=== PATIENT | female | born 1935 | race Caucasian/White ===

== ENCOUNTER 2022-11-09 07:54 | Emergency (ER) | payer MEDICARE, OTHER ==
[~2022-11-09] VITALS: Ht 157.4 cm; Wt 77.6 kg
[2022-11-09] MEDS ORDERED: LEVOTHYROXINE75 MCG PO (08:24)
[2022-11-09] MEDS ORDERED: LISINOPRIL20 MG PO (08:26)
[2022-11-09] MEDS ORDERED: NORVASC10 MG PO (08:26)
[2022-11-09] MEDS ORDERED: COREG6.25 MG PO (08:27)
[2022-11-09] MEDS ORDERED: ASPIRIN ADULT L81 M1 PO (08:28)
[2022-11-09] MEDS ORDERED: HYDR25T PO (08:28)
[2022-11-09] MEDS ORDERED: FOLTANX RF CAP1 EACH PO (08:30)
[2022-11-09 08:34] LABS: HEMATOCRIT 33.4 % (37.0-47.0); MEAN CORPUSCULAR HGB 28.9 pg (27.0-31.0); MEAN CORPUSCULAR HGB CONC 33.2 g/dl (33.0-37.0); MEAN PLATELET VOLUME 9.4 fl (9.6-12.3); PLATELET COUNT AUTOMATED 306 10*3/uL (130-400); RED BLOOD COUNT 3.84 10*6/uL (4.10-5.10); RED CELL DISTRI WIDTH 13.1 % (0-14.5)
[2022-11-09 08:41] LABS: MANUAL DIFF REFLEX YES
[2022-11-09 08:45] LABS: ACT PARTIAL THROMBO TIME 28.8 SECONDS (20.0-32.1); INTERNATIONAL NORM RATIO 0.9 (2.0-3.5)
[2022-11-09 08:58] LABS: BILIRUBIN Negative (Negative); BLOOD Negative (Negative); CLARITY Clear (Clear); COLOR Yellow (Yellow); GLUCOSE Negative (Negative); KETONE Negative (Negative); LEUKO ESTERASE Negative (Negative); NITRITE Negative (Negative); SPECIFIC GRAVITY <= 1.005 (1.001-1.030); UROBILINOGEN 0.2 E.U./dl (0.0-1.0)
[2022-11-09 09:05] LABS: ATYPICAL LYMPHS 2 % (0-0); BASOPHILS 1 % (0-1); OVALOCYTES FEW; PLATELET SUFFICIENCY NORMAL (NORMAL); POLYCHROMASIA SLIGHT; TOTAL CELLS COUNTED 100 #CELLS; VACUOLATION OF NEUTROPHILS SLIGHT
[2022-11-09 09:09] LABS: POTASSIUM 3.9 mmol/L (3.4-5.1)
[2022-11-09] MEDS ORDERED: ONDANSETRON4 MG SL (14:42)
[2022-11-09] MEDS ORDERED: MECLIZINE HCL25 M2 PO (14:42)
== END 2022-11-09 14:52 | disposition home or self-care (01) ==
LOC: ED 07:54
PROVIDERS: Emergency Medicine; Internal Medicine
DX: R42 Dizziness and giddiness (principal); R11.2 Nausea with vomiting, unspecified; I10 Essential (primary) hypertension; D64.9 Anemia, unspecified; E11.9 Type 2 diabetes mellitus without complications; M19.90 Unspecified osteoarthritis, unspecified site; Z96.653 Presence of artificial knee joint, bilateral; Z88.5 Allergy status to narcotic agent; Z88.8 Allergy status to other drugs, medicaments and biological substances

== ENCOUNTER 2024-02-12 23:53 | Emergency (ER) | payer MEDICARE, OTHER ==
[~2024-02-12 23:53] MED LIST: ASPIRIN ADULT L81 M1 PO; COREG6.25 MG PO; FOLTANX RF CAP1 EACH PO; HYDR25T PO; LEVOTHYROXINE75 MCG PO; LISINOPRIL20 MG PO; MECLIZINE HCL25 M2 PO; NORVASC10 MG PO; ONDANSETRON4 MG SL
[2024-02-13 00:27] LABS: BILIRUBIN Negative (Negative); BLOOD Negative (Negative); CLARITY Clear (Clear); COLOR Yellow (Yellow); GLUCOSE Negative (Negative); KETONE Negative (Negative); LEUKO ESTERASE Negative (Negative); NITRITE Negative (Negative); PH 5.5 (4.5-8.0); SPECIFIC GRAVITY <= 1.005 (1.001-1.030); UROBILINOGEN 0.2 E.U./dl (0.0-1.0)
[2024-02-13 00:30] LABS: BASO # 0.1 10*3/uL (0.0-0.1); BASO % 0.8 % (0.0-1.0); EOS # 0.2 10*3/uL (0.0-0.4); EOS % 2.9 % (1.0-4.0); HEMATOCRIT 32.5 % (37.0-47.0); LYMPH # 1.9 10*3/uL (1.3-4.4); LYMPH % 23.6 % (27.0-41.0); MEAN CELL VOLUME 93.4 fl (81.0-99.0); MEAN CORPUSCULAR HGB 29.3 pg (27.0-31.0); MEAN CORPUSCULAR HGB CONC 31.4 g/dl (33.0-37.0); MEAN PLATELET VOLUME 9.5 fl (9.6-12.3); MONO # 0.5 10*3/uL (0.1-1.0); MONO % 5.7 % (3.0-9.0); NEUT # 5.3 10*3/uL (2.3-7.9); NEUT % 66.6 % (47.0-73.0); PLATELET COUNT AUTOMATED 292 10*3/uL (130-400); RED BLOOD COUNT 3.48 10*6/uL (4.10-5.10); RED CELL DISTRI WIDTH 13.3 % (0-14.5); WHITE BLOOD COUNT 7.9 10*3/uL (4.8-10.8)
[2024-02-13 00:35] LABS: BACTERIA TRACE; FINE GRANULAR CAST 0-2; MUCOUS 1+; RBC 0-2 rbc/hpf (0-2)
[2024-02-13 00:54] LABS: POTASSIUM 5.6 mmol/L (3.4-5.1)
[2024-02-13] MEDS ORDERED: DEXTROSE 10 % IN WATER 250 ML DEHP.FR.BG IV ONE (01:00)
[2024-02-13] MEDS ORDERED: SODIUM CHLORIDE 0.9% 500 ML IV ONE (01:00)
== END 2024-02-13 06:10 | disposition home or self-care (01) ==
LOC: ED 23:53
PROVIDERS: Internal Medicine
DX: E11.649 Type 2 diabetes mellitus with hypoglycemia without coma (principal); D64.9 Anemia, unspecified; E87.8 Other disorders of electrolyte and fluid balance, not elsewhere classified; E11.22 Type 2 diabetes mellitus with diabetic chronic kidney disease; I12.9 Hypertensive chronic kidney disease with stage 1 through stage 4 chronic kidney disease, or unspecified chronic kidney disease; N18.9 Chronic kidney disease, unspecified; N17.9 Acute kidney failure, unspecified; M19.90 Unspecified osteoarthritis, unspecified site; Z88.6 Allergy status to analgesic agent; Z88.5 Allergy status to narcotic agent; Z90.49 Acquired absence of other specified parts of digestive tract

== ENCOUNTER 2024-10-01 19:43 | Emergency (ER) | payer MEDICARE, OTHER ==
[~2024-10-01 19:43] MED LIST changes: +AMLODIPINE BESYL5 MG PO; +CALCIUM 500+D1 EAC2 PO; +FEROSUL325 MG PO; +FOLTANX TABLET1 EACH PO; +HYDRALAZINE HYD50 MG PO; +LASIX40 MG PO; +NEURONTIN300 MG PO; +PROBIOTIC250 MG PO; +REPAGLINIDE0.5 M1 PO; +ROSUVASTATIN CA10 MG PO; +VITAMIN C500 M4 PO; +Zestril,Prinivi40 MG PO
[2024-10-01 20:40] LABS: BASO % 0.8 % (0.0-1.0); EOS # 0.1 10*3/uL (0.0-0.4); EOS % 2.1 % (1.0-4.0); HEMATOCRIT 32.8 % (37.0-47.0); MEAN CELL VOLUME 88.4 fl (81.0-99.0); MEAN CORPUSCULAR HGB 27.8 pg (27.0-31.0); MEAN CORPUSCULAR HGB CONC 31.4 g/dl (33.0-37.0); MEAN PLATELET VOLUME 9.2 fl (9.6-12.3); MONO # 0.4 10*3/uL (0.1-1.0); MONO % 7.2 % (3.0-9.0); NEUT # 3.2 10*3/uL (2.3-7.9); NEUT % 61.8 % (47.0-73.0); PLATELET COUNT AUTOMATED 257 10*3/uL (130-400); RED BLOOD COUNT 3.71 10*6/uL (4.10-5.10); RED CELL DISTRI WIDTH 14.8 % (0-14.5); WHITE BLOOD COUNT 5.1 10*3/uL (4.8-10.8)
[2024-10-01 21:01] LABS: POTASSIUM 5.1 mmol/L (3.4-5.1)
[2024-10-01] MEDS ORDERED: LORazepam 1 MG TAB PO ONE (22:15)
== END 2024-10-02 00:35 | disposition home or self-care (01) ==
LOC: ED 19:43
PROVIDERS: Internal Medicine
DX: F41.9 Anxiety disorder, unspecified (principal); D63.1 Anemia in chronic kidney disease; E11.22 Type 2 diabetes mellitus with diabetic chronic kidney disease; I12.9 Hypertensive chronic kidney disease with stage 1 through stage 4 chronic kidney disease, or unspecified chronic kidney disease; N18.9 Chronic kidney disease, unspecified; N17.9 Acute kidney failure, unspecified; M19.90 Unspecified osteoarthritis, unspecified site; R42 Dizziness and giddiness; Z88.5 Allergy status to narcotic agent; Z88.1 Allergy status to other antibiotic agents; Z90.49 Acquired absence of other specified parts of digestive tract; Z98.890 Other specified postprocedural states; Z95.1 Presence of aortocoronary bypass graft

== ENCOUNTER 2024-12-14 20:10 | Emergency (ER) | payer MEDICARE, OTHER ==
[~2024-12-14] VITALS: Wt 70.3 kg
[2024-12-14 20:53] LABS: BASO % 0.8 % (0.0-1.0); EOS # 0.2 10*3/uL (0.0-0.4); EOS % 3.4 % (1.0-4.0); HEMATOCRIT 29.3 % (37.0-47.0); MEAN CELL VOLUME 92.7 fl (81.0-99.0); MEAN CORPUSCULAR HGB 28.2 pg (27.0-31.0); MEAN CORPUSCULAR HGB CONC 30.4 g/dl (33.0-37.0); MEAN PLATELET VOLUME 9.4 fl (9.6-12.3); MONO # 0.4 10*3/uL (0.1-1.0); MONO % 8.8 % (3.0-9.0); NEUT # 2.7 10*3/uL (2.3-7.9); NEUT % 54.3 % (47.0-73.0); PLATELET COUNT AUTOMATED 189 10*3/uL (130-400); RED BLOOD COUNT 3.16 10*6/uL (4.10-5.10); RED CELL DISTRI WIDTH 14.2 % (0-14.5)
[2024-12-14] MEDS ORDERED: LASIX40 MG PO (21:02)
[2024-12-14] MEDS ORDERED: FLONASE ALLERG9.9 ML NAS (21:03)
[2024-12-14] MEDS ORDERED: REPAGLINIDE0.5 M1 PO (21:06)
[2024-12-14 21:12] LABS: POTASSIUM 5.5 mmol/L (3.4-5.1)
[2024-12-14] MEDS ORDERED: Albuterol Sulfate 2.5 MG/3 ML VIAL NEB ONE (21:20)
[2024-12-14] MEDS ORDERED: DEXTROSE 50% 25 GM/50 ML SYR IV ONE (21:20)
[2024-12-14] MEDS ORDERED: INSULIN REGULAR, HUMAN 1 UNIT/0.01 ML IV ONE (21:20)
[2024-12-14 23:33] LABS: POTASSIUM 4.9 mmol/L (3.4-5.1)
== END 2024-12-15 00:26 | disposition home or self-care (01) ==
LOC: ED 20:10
PROVIDERS: Internal Medicine
DX: E87.5 Hyperkalemia (principal); E11.649 Type 2 diabetes mellitus with hypoglycemia without coma; Z88.1 Allergy status to other antibiotic agents; Z88.6 Allergy status to analgesic agent; Z79.899 Other long term (current) drug therapy; Z79.82 Long term (current) use of aspirin; Z90.49 Acquired absence of other specified parts of digestive tract; Z96.653 Presence of artificial knee joint, bilateral; Z95.5 Presence of coronary angioplasty implant and graft; Z86.73 Personal history of transient ischemic attack (TIA), and cerebral infarction without residual deficits

== ENCOUNTER → 2025-01-08 | Outpatient (CLI) | payer MEDICARE, OTHER ==
[~2025-01-08] MED LIST changes: +FLONASE ALLERG9.9 ML NAS
== END | disposition home or self-care (01) ==
LOC: D 14:06
PROVIDERS: ATTEND Physician Assistant
DX: E11.22 Type 2 diabetes mellitus with diabetic chronic kidney disease (principal); N18.32 Chronic kidney disease, stage 3b; I50.9 Heart failure, unspecified

== ENCOUNTER 2025-02-10 22:10 | Observation (INO) | payer MEDICARE, OTHER ==
[~2025-02-10] VITALS: Ht 157.4 cm; Wt 70.3 kg
[2025-02-10 22:23] VITALS: BP 203/56
[2025-02-10] MEDS ORDERED: LORazepam 0.5 MG TAB PO ONE (22:40)
[2025-02-10 23:15] LABS: BASO % 0.7 % (0.0-1.0); EOS # 0.1 10*3/uL (0.0-0.4); HEMATOCRIT 32.5 % (37.0-47.0); MEAN CELL VOLUME 91.3 fl (81.0-99.0); MEAN CORPUSCULAR HGB 28.4 pg (27.0-31.0); MEAN CORPUSCULAR HGB CONC 31.1 g/dl (33.0-37.0); MONO # 0.4 10*3/uL (0.1-1.0); MONO % 7.1 % (3.0-9.0); NEUT % 67.1 % (47.0-73.0); PLATELET COUNT AUTOMATED 220 10*3/uL (130-400); RED BLOOD COUNT 3.56 10*6/uL (4.10-5.10); RED CELL DISTRI WIDTH 13.3 % (0-14.5)
[2025-02-10 23:36] LABS: POTASSIUM 4.1 mmol/L (3.4-5.1)
[2025-02-10 23:44] VITALS: BP 167/41
[2025-02-10 23:45] VITALS: BP 167/41
[2025-02-11 00:52] VITALS: BP 146/52
[2025-02-11 03:14] VITALS: BP 173/94
[2025-02-11 06:03] VITALS: BP 128/37
[2025-02-11 07:22] VITALS: BP 127/44
[2025-02-11] MEDS ORDERED: NITROGLYCERIN 1 IN PACKET T ONE (09:15)
[2025-02-11] MEDS ORDERED: ASPIRIN, CHEWABLE 81 MG TAB PO ONE (09:15)
[2025-02-11 10:11] VITALS: BP 181/57
[2025-02-11] MEDS ORDERED: BISACODYL 10 MG SUPP R PRN (12:30)
[2025-02-11] MEDS ORDERED: Ondansetron Hydrochloride 4 MG/2 ML VIAL IV PRN (12:30)
[2025-02-11] MEDS ORDERED: ACETAMINOPHEN 325 MG TAB PO PRN (12:30)
[2025-02-11] MEDS ORDERED: ACETAMINOPHEN 650 MG SUPP R PRN (12:30)
[2025-02-11] MEDS ORDERED: BISACODYL 5 MG TAB PO PRN (12:30)
[2025-02-11] MEDS ORDERED: Magnesium Hydroxide 30 ML UDC PO PRN (12:30)
[2025-02-11] MEDS ORDERED: HEPARIN SODIUM 250 ML IV SCH (12:45)
[2025-02-11] MEDS ORDERED: SODIUM CHLORIDE 0.9% 1,000 ML IV ONE (13:00)
[2025-02-11 13:24] VITALS: BP 157/48
[2025-02-11] MEDS ORDERED: ATORVASTATIN CALCIUM 20 MG TAB PO SCH (22:00)
[2025-02-11] MEDS ORDERED: CARVEDILOL 6.25 MG TAB PO SCH (22:00)
[2025-02-12] MEDS ORDERED: Levothyroxine Sodium 75 MCG TAB PO SCH (06:00)
[2025-02-12] MEDS ORDERED: FUROSEMIDE 40 MG TAB PO SCH (10:00)
[2025-02-12] MEDS ORDERED: ASCORBIC ACID 500 MG TAB PO SCH (10:00)
[2025-02-12] MEDS ORDERED: ASPIRIN, CHEWABLE 81 MG TAB PO SCH (10:00)
[2025-02-12] MEDS ORDERED: Lactobacillus Acidophilus/LA 1 TAB TAB PO SCH (10:00)
[2025-02-12] MEDS ORDERED: Z-BEC PO SCH (10:00)
[2025-02-12] MEDS ORDERED: CALCIUM CARBONATE/VITAMIN D3 500 MG/200 IU TABLET PO SCH (10:00)
== END 2025-02-11 17:19 | disposition short-term general hospital (02) ==
LOC: ED 22:10 → EDHOLD 02-11 11:14
PROVIDERS: Internal Medicine; ADMIT Family Medicine; ATTEND Family Medicine
DX: I13.0 Hypertensive heart and chronic kidney disease with heart failure and stage 1 through stage 4 chronic kidney disease, or unspecified chronic kidney disease (principal); E11.22 Type 2 diabetes mellitus with diabetic chronic kidney disease; N18.30 Chronic kidney disease, stage 3 unspecified; I50.9 Heart failure, unspecified; D63.1 Anemia in chronic kidney disease; I25.10 Atherosclerotic heart disease of native coronary artery without angina pectoris; E78.5 Hyperlipidemia, unspecified; R07.89 Other chest pain; E11.65 Type 2 diabetes mellitus with hyperglycemia; I16.1 Hypertensive emergency; N17.9 Acute kidney failure, unspecified; R79.89 Other specified abnormal findings of blood chemistry; Z79.899 Other long term (current) drug therapy

== ENCOUNTER → 2025-04-18 | Outpatient (CLI) | payer MEDICARE, OTHER | END | disposition home or self-care (01) | LOC: MRI 13:36 | PROVIDERS: ATTEND Anesthesiology Pain Medicine | DX: M48.07 Spinal stenosis, lumbosacral region (principal); M47.27 Other spondylosis with radiculopathy, lumbosacral region; M25.78 Osteophyte, vertebrae; M48.02 Spinal stenosis, cervical region ==

== ENCOUNTER 2025-07-09 12:56 | Emergency (ER) | payer MEDICARE, OTHER ==
[~2025-07-09] VITALS: Ht 157.4 cm; Wt 68.0 kg
[~2025-07-09 12:56] MED LIST changes: +GABAPENTIN100 M2 PO; +ISOSORBIDE DINI30 MG PO; +MUCINEX1200 M1 PO; +ROSUVASTATIN CA20 MG PO; +TYLENOL325 M2 PO
[2025-07-09] MEDS ORDERED: Ondansetron Hydrochloride 4 MG/2 ML VIAL IV ONE (13:20)
[2025-07-09] MEDS ORDERED: SODIUM CHLORIDE 0.9% 1,000 ML IV ONE (13:20)
[2025-07-09 13:43] LABS: BASO # 0.1 10*3/uL (0.0-0.1); BASO % 0.6 % (0.0-1.0); EOS # 0.1 10*3/uL (0.0-0.4); EOS % 1.3 % (1.0-4.0); MEAN CELL VOLUME 89.3 fl (81.0-99.0); MEAN CORPUSCULAR HGB 28.9 pg (27.0-31.0); MEAN PLATELET VOLUME 9.1 fl (9.6-12.3); MONO # 0.5 10*3/uL (0.1-1.0); MONO % 5.4 % (3.0-9.0); NEUT # 6.7 10*3/uL (2.3-7.9); NEUT % 80.4 % (47.0-73.0); NUCLEATED RED BLOOD CELL 0.0 % (0.0-0.0); NUCLEATED RED BLOOD CELL 0.0 10*3/uL (0.0-0.0); PLATELET COUNT AUTOMATED 286 10*3/uL (130-400); RED CELL DISTRI WIDTH 14.0 % (0-14.5)
[2025-07-09 14:03] LABS: BUN 53.0 mg/dl (9-23)
[2025-07-09 14:31] LABS: BILIRUBIN Negative (Negative); BLOOD Negative (Negative); CLARITY Clear (Clear); COLOR Yellow (Yellow); KETONE Negative (Negative); LEUKO ESTERASE Negative (Negative); NITRITE Negative (Negative); PH 5.0 (4.5-8.0); SPECIFIC GRAVITY 1.010 (1.001-1.030); UROBILINOGEN 0.2 E.U./dl (0.0-1.0)
[2025-07-09 14:54] LABS: BACTERIA 1+; HYALINE CAST 0-2; MUCOUS TRACE
[2025-07-09] MEDS ORDERED: PEPCID20 MG PO (15:01)
[2025-07-09] MEDS ORDERED: Ondansetron4 MG PO (15:01)
== END 2025-07-09 15:04 | disposition home or self-care (01) ==
LOC: ED 12:56
PROVIDERS: Emergency Medicine
DX: R07.89 Other chest pain (principal); R11.2 Nausea with vomiting, unspecified; R10.9 Unspecified abdominal pain; E11.9 Type 2 diabetes mellitus without complications; M19.90 Unspecified osteoarthritis, unspecified site; I10 Essential (primary) hypertension; Z90.49 Acquired absence of other specified parts of digestive tract; Z96.653 Presence of artificial knee joint, bilateral; Z88.1 Allergy status to other antibiotic agents; Z88.5 Allergy status to narcotic agent; Z88.8 Allergy status to other drugs, medicaments and biological substances